=== PATIENT | male | born 1945 | race Caucasian/White ===

== ENCOUNTER 2017-02-09 01:40 | Inpatient (IN) | payer MEDICARE, OTHER ==
[~2017-02-09] VITALS: Ht 190.5 cm; Wt 115.5 kg
[2017-02-09 02:20] VITALS: BP 123/72
[2017-02-09] MEDS ORDERED: ACETAMINOPHEN 325 MG TABLET PO PRN (04:00)
[2017-02-09] MEDS ORDERED: hydrALAzine 20 MG/ML, 1ML IVPush PRN (04:00)
[2017-02-09] MEDS ORDERED: BISACODYL 10 MG SUPP PR PRN (04:00)
[2017-02-09] MEDS ORDERED: NITROGLYCERIN 0.4 MG BOTTLE (25 TABS) SL PRN (04:00)
[2017-02-09] MEDS ORDERED: DOCUSATE 100 MG CAPSULE PO PRN (04:00)
[2017-02-09] MEDS ORDERED: POLYETHYLENE GLYCOL 17 GM PACKET PO PRN (04:00)
[2017-02-09] MEDS ORDERED: OXYcodone IR 5MG TABLET PO PRN (04:00)
[2017-02-09] MEDS ORDERED: morphine SULFATE 10 MG/ML, 1ML IVPush PRN (04:00)
[2017-02-09] MEDS ORDERED: ASPIRIN 325 MG TABLET EC PO ONE (04:00)
[2017-02-09] MEDS ORDERED: ONDANSETRON 2MG/ML, 2ML IVPush PRN (04:00)
[2017-02-09] MEDS ORDERED: PROMETHAZINE 25 MG/ML, 1ML IM PRN (04:00)
[2017-02-09] MEDS ORDERED: ZOLPIDEM 5MG TABLET PO PRN (04:00)
[2017-02-09] MEDS ORDERED: PLEASE ENTER HEIGHT AND WEIGHT MC SCH (04:30)
[2017-02-09] MEDS: SODIUM CHLORIDE 0.9% 1,000 ML IV SCH ×2 (05:36→21:05)
[2017-02-09] MEDS ORDERED: METO25TA35 PO (05:53)
[2017-02-09] MEDS ORDERED: LOVA20TA2 PO (05:53)
[2017-02-09] MEDS ORDERED: ASPI325T80 PO (05:53)
[2017-02-09 06:03] LABS: HEMATOCRIT 45.7 % (39.2-51.8); HEMOGLOBIN 15.4 g/dL (13.7-18.0); WHITE BLOOD COUNT 8.7 x10^3/uL (3.4-10)
[2017-02-09 06:16] LABS: BLOOD UREA NITROGEN 23 mg/dL (7-18)
[2017-02-09 06:24] LABS: IS PT STATUS REG ER OR PRE ER? NO
[2017-02-09] MEDS: METOPROLOL TARTRATE 25 MG TABLET PO SCH ×2 (06:40→17:56)
[2017-02-09 08:10] VITALS: BP 120/72
[2017-02-09] MEDS ORDERED: MIDAZOLAM 1 MG/ML, 5ML ONE (11:43)
[2017-02-09] MEDS ORDERED: FENTANYL PF 100 MCG/2ML ONE (11:43)
[2017-02-09] MEDS ORDERED: VERAPAMIL 2.5 MG/ML, 2ML ONE (11:44)
[2017-02-09] MEDS ORDERED: LIDOCAINE 2%, 20ML ONE (11:44)
[2017-02-09] MEDS ORDERED: HEPARIN 1,000 UNITS/ML, 10ML ONE (11:44)
[2017-02-09] MEDS ORDERED: ENOXAPARIN 100 MG/ML SQ SCH (13:00)
[2017-02-09 14:43] VITALS: BP 138/64
[2017-02-09 19:30] VITALS: BP 144/80
[2017-02-09] MEDS: LOVASTATIN 40 MG TABLET PO SCH (21:05)
[2017-02-10 03:05] VITALS: BP 177/75
[2017-02-10 03:30] VITALS: BP 157/87
[2017-02-10 05:45] LABS: BLOOD UREA NITROGEN 18 mg/dL (7-18)
[2017-02-10] MEDS: METOPROLOL TARTRATE 25 MG TABLET PO SCH ×2 (06:12→17:24)
[2017-02-10 08:31] VITALS: BP 155/79
[2017-02-10] MEDS: LISINOPRIL 5 MG TABLET PO SCH (11:02)
[2017-02-10] MEDS: ASPIRIN 81 MG TABLET EC PO SCH (11:02)
[2017-02-10 13:42] VITALS: BP 133/79
[2017-02-10 20:18] VITALS: BP 122/61
[2017-02-10] MEDS: LOVASTATIN 40 MG TABLET PO SCH (20:25)
[2017-02-11 03:14] VITALS: BP 126/71
[2017-02-11] MEDS: METOPROLOL TARTRATE 25 MG TABLET PO SCH ×2 (06:00→17:20)
[2017-02-11 06:58] VITALS: BP 117/64
[2017-02-11] MEDS ORDERED: HEPARIN 5,000 UNITS/ML, 1ML SQ ONE (07:30)
[2017-02-11] MEDS: ASPIRIN 81 MG TABLET EC PO SCH (08:35)
[2017-02-11] MEDS: LISINOPRIL 5 MG TABLET PO SCH (08:35)
[2017-02-11] MEDS ORDERED: INSULIN ASPART 100 UNITS/ML, PEN SQ-INSULIN SCH (09:00)
[2017-02-11] MEDS ORDERED: CHLORHEXIDINE MOUTHWASH 15 ML UDC MM PRN (09:00)
[2017-02-11] MEDS ORDERED: OMNIPAQUE 350 MG/ML, 100ML BOTTLE ONE (10:29)
[2017-02-11 10:33] LABS: HEMATOCRIT 42.4 % (39.2-51.8); HEMOGLOBIN 14.3 g/dL (13.7-18.0); WHITE BLOOD COUNT 7.6 x10^3/uL (3.4-10)
[2017-02-11] MEDS: MUPIROCIN OINT 2%, 22GM TP SCH ×2 (10:38→23:34)
[2017-02-11] MEDS: SODIUM CHLORIDE FLUSH 10ML SYR IVF SCH ×2 (10:38→23:34)
[2017-02-11 10:49] LABS: BLOOD UREA NITROGEN 17 mg/dL (7-18)
[2017-02-11 10:53] LABS: ASPARTATE AMINO TRANSFERASE 18 U/L (15-37)
[2017-02-11 13:25] VITALS: BP 136/78
[2017-02-11 17:19] VITALS: BP 128/70
[2017-02-11 22:53] VITALS: BP 120/57
[2017-02-11] MEDS: LOVASTATIN 40 MG TABLET PO SCH (22:54)
[2017-02-12] MEDS ORDERED: ALBUMIN HUMAN 5% 500 ML IV ONE (04:00)
[2017-02-12 05:26] VITALS: BP_SYST 113; BP_SYST 118; BP_DIAS 72
[2017-02-12] MEDS: MUPIROCIN OINT 2%, 22GM TP SCH (05:34)
[2017-02-12] MEDS ORDERED: HEPARIN 1,000 UNITS/ML, 10ML ONE (06:52)
[2017-02-12] MEDS ORDERED: MIDAZOLAM 10MG/2 ML ONE (06:52)
[2017-02-12] MEDS ORDERED: PAPAVERINE 30 MG/ML, 2ML ONE (06:52)
[2017-02-12] MEDS ORDERED: FENTANYL PF 1000 MCG/20ML ONE (06:52)
[2017-02-12] MEDS ORDERED: REGULAR INSULIN 62.5 UNITS in SODIUM CHLORIDE 0.9% 249.375 ML IV PRN ×2 (07:30→10:57)
[2017-02-12] MEDS ORDERED: DEXMEDETOMIDINE 200 MCG in SODIUM CHLORIDE 0.9% 48 ML IV SCH (07:30)
[2017-02-12] MEDS ORDERED: PHENYLEPHRINE 10 MG in SODIUM CHLORIDE 0.9% 249 ML IV PRN ×2 (07:30→10:57)
[2017-02-12] MEDS ORDERED: MANNITOL PMX 20% 500 ML IVPB PRN (07:30)
[2017-02-12] MEDS ORDERED: CEFUROXIME 1.5 GM in SODIUM CHLORIDE 0.9% 50 ML IVPB PRN (07:30)
[2017-02-12] MEDS ORDERED: VANCOMYCIN 1,600 MG in SODIUM CHLORIDE 0.9% 250 ML IVPB PRN (07:30)
[2017-02-12] MEDS ORDERED: EPINEPHRINE 2 MG in SODIUM CHLORIDE 0.9% 248 ML IV SCH (07:30)
[2017-02-12] MEDS ORDERED: POTASSIUM CHLORIDE 80 MEQ, SODIUM BICARBONATE 8.4% 10 MEQ, MAGNESIUM SULFATE 0.5 GM, LI... IV PRN (07:30)
[2017-02-12] MEDS ORDERED: ROCURONIUM 10 MG/ML ONE (08:51)
[2017-02-12] MEDS ORDERED: PROPOFOL 10 MG/ML, 20ML ONE (08:51)
[2017-02-12] MEDS: LISINOPRIL 5 MG TABLET PO SCH (09:00)
[2017-02-12] MEDS ORDERED: DEXMEDETOMIDINE 200 MCG in SODIUM CHLORIDE 0.9% 48 ML IV PRN (10:57)
[2017-02-12] MEDS ORDERED: DOBUTAMINE 250 MG in SODIUM CHLORIDE 0.9% 230 ML IV PRN (10:57)
[2017-02-12] MEDS ORDERED: SODIUM CHLORIDE 0.9% 1,000 ML IV PRN (10:57)
[2017-02-12] MEDS ORDERED: NITROGLYCERIN/D5W PMX 250 ML IV PRN (10:57)
[2017-02-12] MEDS ORDERED: PROCHLORPERAZINE 5 MG/ML, 2ML IVPush PRN (11:00)
[2017-02-12] MEDS ORDERED: GLUCAGON 1 MG IM PRN (11:00)
[2017-02-12] MEDS ORDERED: ACETAMINOPHEN 650 MG SUPP PR PRN (11:00)
[2017-02-12] MEDS ORDERED: EPINEPHRINE 2 MG in SODIUM CHLORIDE 0.9% 248 ML IV PRN (11:00)
[2017-02-12] MEDS ORDERED: MEPERIDINE/PF 25MG/0.5ML IVPush PRN (11:00)
[2017-02-12] MEDS ORDERED: MIDAZOLAM 1 MG/ML, 5ML IVPush PRN (11:00)
[2017-02-12] MEDS ORDERED: morphine SULFATE 10 MG/ML, 1ML IVPush PRN (11:00)
[2017-02-12] MEDS ORDERED: BISACODYL 5 MG EC TABLET PO PRN (11:00)
[2017-02-12] MEDS ORDERED: DEXTROSE 50%, 50ML SYRINGE IVPush PRN (11:00)
[2017-02-12] MEDS ORDERED: BISACODYL 10 MG SUPP PR PRN (11:00)
[2017-02-12] MEDS ORDERED: DEXTROSE 4 GM TAB.CHEW PO PRN (11:00)
[2017-02-12] MEDS ORDERED: ONDANSETRON 2MG/ML, 2ML IVPush PRN (11:00)
[2017-02-12] MEDS ORDERED: AMINOCAPROIC ACID 250 MG/ML, 20ML ONE ×2 (11:12→13:49)
[2017-02-12] MEDS ORDERED: PROTAMINE SULFATE 10 MG/ML, 25ML ONE (11:12)
[2017-02-12] MEDS ORDERED: CALCIUM CHLORIDE 10%, 10ML SYR ONE (11:59)
[2017-02-12] MEDS: KSCALE TO 4.5 IV SCH ×2 (12:00→22:25)
[2017-02-12] MEDS ORDERED: FUROSEMIDE 20 MG/2 ML ONE (15:39)
[2017-02-12] MEDS ORDERED: HEPARIN 1,000 UNITS/ML, 30ML ONE ×2 (16:13→16:14)
[2017-02-12] MEDS ORDERED: methylPREDNISolone SOD SUCC 125 MG/2 ML ONE (16:14)
[2017-02-12] MEDS ORDERED: SODIUM BICARB 8.4%, 50ML SYRINGE ONE ×2 (16:15→16:17)
[2017-02-12] MEDS ORDERED: LIDOCAINE 2% 100MG/5ML SYRINGE ONE (16:15)
[2017-02-12] MEDS ORDERED: ALBUMIN HUMAN 25% 50 ML ONE (16:16)
[2017-02-12 16:20] LABS: HEMATOCRIT 33.8 % (39.2-51.8); HEMOGLOBIN 11.4 g/dL (13.7-18.0)
[2017-02-12 16:24] LABS: ABG COLLECTION SITE ARTERIAL LINE
[2017-02-12] MEDS: DEXMEDETOMIDINE 200 MCG in SODIUM CHLORIDE 0.9% 48 ML IV PRN ×3 (16:24→22:54)
[2017-02-12] MEDS ORDERED: VASOPRESSIN 100 UNIT in SODIUM CHLORIDE 0.9% 495 ML IV PRN (16:30)
[2017-02-12] MEDS: EPINEPHRINE 2 MG in SODIUM CHLORIDE 0.9% 248 ML IV PRN (16:39)
[2017-02-12] MEDS: SODIUM BICARB 8.4%, 50ML SYRINGE IV PRN ×3 (16:41→22:08)
[2017-02-12] MEDS ORDERED: POTASSIUM CHLORIDE 30 MEQ in SODIUM CHLORIDE 0.9% 100 ML IV ONE (17:30)
[2017-02-12] MEDS ORDERED: NOVOSEVEN RT (FACTOR VIIA) RECOMB 1,000 MCG IVPush ONE (18:00)
[2017-02-12] MEDS ORDERED: CALCIUM CHLORIDE 13.6 MEQ in SODIUM CHLORIDE 0.9% 100 ML IV ONE (18:00)
[2017-02-12 18:38] VITALS: BP 122/63
[2017-02-12 18:53] VITALS: BP 112/61
[2017-02-12 19:07] VITALS: BP 109/61
[2017-02-12 19:19] VITALS: BP 115/62
[2017-02-12] MEDS: MAGNESIUM SULFATE 1 GM in SODIUM CHLORIDE 0.9% 50 ML IVPB SCH (19:20)
[2017-02-12 19:34] VITALS: BP 113/60
[2017-02-12] MEDS: CEFUROXIME 1.5 GM in SODIUM CHLORIDE 0.9% 50 ML IVPB SCH (19:43)
[2017-02-12] MEDS: VANCOMYCIN 1,600 MG in SODIUM CHLORIDE 0.9% 250 ML IVPB SCH (19:43)
[2017-02-12] MEDS: SODIUM CHLORIDE FLUSH 10ML SYR IVF SCH (20:30)
[2017-02-12] MEDS: LACTATED RINGERS 500 ML IVBOLUS PRN ×2 (22:07→23:23)
[2017-02-12 22:15] LABS: HEMATOCRIT 28.8 % (39.2-51.8); HEMOGLOBIN 9.8 g/dL (13.7-18.0)
[2017-02-13] MEDS: LACTATED RINGERS 500 ML IVBOLUS PRN (01:09)
[2017-02-13] MEDS: DEXMEDETOMIDINE 200 MCG in SODIUM CHLORIDE 0.9% 48 ML IV PRN ×2 (01:10→05:03)
[2017-02-13] MEDS: ACETAMINOPHEN 325 MG TABLET PO PRN ×2 (04:16→16:10)
[2017-02-13 04:19] LABS: ABG COLLECTION SITE ARTERIAL LINE
[2017-02-13 04:24] LABS: HEMATOCRIT 26.9 % (39.2-51.8); HEMOGLOBIN 9.1 g/dL (13.7-18.0); WHITE BLOOD COUNT 17.1 x10^3/uL (3.4-10)
[2017-02-13 04:30] LABS: BLOOD UREA NITROGEN 18 mg/dL (7-18)
[2017-02-13] MEDS: KSCALE TO 4.5 IV SCH ×3 (04:30→16:30)
[2017-02-13 04:38] LABS: DIFF TOTAL CELLS COUNTED 100 CELL DIFF
[2017-02-13 04:41] LABS: VERIFY COUNTS? YES
[2017-02-13 04:55] VITALS: BP 114/49
[2017-02-13] MEDS: CEFUROXIME 1.5 GM in SODIUM CHLORIDE 0.9% 50 ML IVPB SCH (06:15)
[2017-02-13] MEDS: EPINEPHRINE 2 MG in SODIUM CHLORIDE 0.9% 248 ML IV PRN (07:48)
[2017-02-13] MEDS: VANCOMYCIN 1,600 MG in SODIUM CHLORIDE 0.9% 250 ML IVPB SCH (07:55)
[2017-02-13] MEDS: LISINOPRIL 5 MG TABLET PO SCH (09:00)
[2017-02-13] MEDS: DOCUSATE 100 MG CAPSULE PO SCH ×2 (09:11→19:51)
[2017-02-13] MEDS: MUPIROCIN OINT 2%, 22GM NAS SCH ×2 (09:11→19:52)
[2017-02-13] MEDS: PANTOPRAZOLE 40 MG IV IVPush SCH (09:11)
[2017-02-13] MEDS: ASPIRIN 81 MG TABLET EC PO SCH (09:11)
[2017-02-13] MEDS: SODIUM CHLORIDE FLUSH 10ML SYR IVF SCH ×2 (09:11→19:52)
[2017-02-13 10:57] LABS: HEMATOCRIT 24.5 % (39.2-51.8); HEMOGLOBIN 8.3 g/dL (13.7-18.0)
[2017-02-13] MEDS ORDERED: CALCIUM CHLORIDE 13.6 MEQ in SODIUM CHLORIDE 0.9% 100 ML IV ONE (11:30)
[2017-02-13] MEDS: CHLORHEXIDINE MOUTHWASH 15 ML UDC MM SCH ×2 (11:45→23:57)
[2017-02-13] MEDS: OXYcodone IR 5MG TABLET PO PRN ×2 (11:45→16:10)
[2017-02-13] MEDS: MAGNESIUM SULFATE 1 GM in SODIUM CHLORIDE 0.9% 50 ML IVPB SCH (11:46)
[2017-02-13 17:40] LABS: HEMATOCRIT 24.1 % (39.2-51.8); HEMOGLOBIN 8.1 g/dL (13.7-18.0)
[2017-02-13] MEDS ORDERED: WARFARIN 5 MG TABLET PO-COUM ONE (18:00)
[2017-02-13] MEDS: METOPROLOL TARTRATE 25 MG TABLET PO/NG SCH (19:37)
[2017-02-13] MEDS: INSULIN ASPART 100 UNITS/ML, PEN SQ-INSULIN PRN ×4 (21:04→23:57)
[2017-02-14] MEDS: OXYcodone IR 5MG TABLET PO PRN ×2 (00:38→05:25)
[2017-02-14 04:36] LABS: HEMOGLOBIN 7.7 g/dL (13.7-18.0)
[2017-02-14 04:46] LABS: BLOOD UREA NITROGEN 21 mg/dL (7-18)
[2017-02-14] MEDS: INSULIN ASPART 100 UNITS/ML, PEN SQ-INSULIN PRN ×4 (05:21→21:01)
[2017-02-14 05:22] VITALS: BP 108/50
[2017-02-14 09:06] LABS: HIT LOT CART23835/KIT23844
[2017-02-14] MEDS: PANTOPRAZOLE 40 MG IV IVPush SCH (09:41)
[2017-02-14] MEDS: SODIUM CHLORIDE FLUSH 10ML SYR IVF SCH ×2 (09:41→20:17)
[2017-02-14] MEDS: MUPIROCIN OINT 2%, 22GM NAS SCH ×2 (09:41→20:17)
[2017-02-14] MEDS: DOCUSATE 100 MG CAPSULE PO SCH ×2 (09:41→20:17)
[2017-02-14] MEDS: FUROSEMIDE 20 MG/2 ML IV SCH (09:41)
[2017-02-14] MEDS: METOPROLOL TARTRATE 25 MG TABLET PO/NG SCH ×2 (09:42→21:00)
[2017-02-14] MEDS: POTASSIUM CHLORIDE 10 MEQ TABLET.ER PO SCH (09:42)
[2017-02-14] MEDS: LISINOPRIL 5 MG TABLET PO SCH (09:42)
[2017-02-14] MEDS: ASPIRIN 81 MG TABLET EC PO SCH (09:42)
[2017-02-14] MEDS: ENOXAPARIN 40 MG/0.4 ML SQ SCH (09:43)
[2017-02-14] MEDS: CHLORHEXIDINE MOUTHWASH 15 ML UDC MM SCH ×2 (09:59→23:46)
[2017-02-14] MEDS: HYDROcodone/APAP 10/325 MG TABLET PO PRN ×4 (11:01→23:46)
[2017-02-14 11:21] LABS: HIT RESULT NEGATIVE (NEGATIVE)
[2017-02-14 11:22] LABS: HIT OBC PASS
[2017-02-14] MEDS: MAGNESIUM SULFATE 1 GM in SODIUM CHLORIDE 0.9% 50 ML IVPB SCH (11:32)
[2017-02-14 15:45] VITALS: BP 136/72
[2017-02-14 16:05] VITALS: BP 113/62
[2017-02-14] MEDS ORDERED: WARFARIN 5 MG TABLET PO-COUM ONE (18:00)
[2017-02-14] MEDS ORDERED: FUROSEMIDE 20 MG/2 ML IV ONE (18:00)
[2017-02-14 18:20] VITALS: BP 124/66
[2017-02-15] MEDS: HYDROcodone/APAP 10/325 MG TABLET PO PRN ×2 (03:45→09:10)
[2017-02-15 04:31] LABS: HEMATOCRIT 23.8 % (39.2-51.8); HEMOGLOBIN 8.2 g/dL (13.7-18.0)
[2017-02-15 04:40] LABS: BLOOD UREA NITROGEN 30 mg/dL (7-18)
[2017-02-15 05:03] VITALS: BP 122/55
[2017-02-15] MEDS: ENOXAPARIN 40 MG/0.4 ML SQ SCH ×3 (08:24→20:21)
[2017-02-15] MEDS: METOPROLOL TARTRATE 25 MG TABLET PO/NG SCH ×2 (08:24→20:13)
[2017-02-15] MEDS: POTASSIUM CHLORIDE 10 MEQ TABLET.ER PO SCH (08:25)
[2017-02-15] MEDS: PANTOPRAZOLE 40 MG IV IVPush SCH (08:25)
[2017-02-15] MEDS: ASPIRIN 81 MG TABLET EC PO SCH (08:25)
[2017-02-15] MEDS: DOCUSATE 100 MG CAPSULE PO SCH ×2 (08:25→20:13)
[2017-02-15] MEDS: LISINOPRIL 5 MG TABLET PO SCH (08:25)
[2017-02-15] MEDS: MUPIROCIN OINT 2%, 22GM NAS SCH ×2 (08:25→20:13)
[2017-02-15] MEDS: FUROSEMIDE 20 MG/2 ML IV SCH (08:25)
[2017-02-15] MEDS: SODIUM CHLORIDE FLUSH 10ML SYR IVF SCH ×2 (08:26→20:17)
[2017-02-15] MEDS: INSULIN ASPART 100 UNITS/ML, PEN SQ-INSULIN PRN (08:26)
[2017-02-15 11:36] VITALS: BP 102/57
[2017-02-15 11:45] VITALS: BP 109/58
[2017-02-15 11:59] VITALS: BP 114/57
[2017-02-15 12:16] VITALS: BP 112/57
[2017-02-15 14:28] VITALS: BP 135/68
[2017-02-15] MEDS ORDERED: WARFARIN 5 MG TABLET PO-COUM SCH (18:00)
[2017-02-15] MEDS ORDERED: BISACODYL 5 MG EC TABLET PO PRN (19:30)
[2017-02-15] MEDS ORDERED: LACTATED RINGERS 500 ML IVBOLUS PRN (19:30)
[2017-02-15] MEDS ORDERED: hydrALAzine 20 MG/ML, 1ML IVPush PRN (19:30)
[2017-02-15] MEDS ORDERED: GLUCAGON 1 MG IM PRN (19:30)
[2017-02-15] MEDS ORDERED: DEXTROSE 4 GM TAB.CHEW PO PRN (19:30)
[2017-02-15] MEDS ORDERED: PROCHLORPERAZINE 5 MG/ML, 2ML IVPush PRN (19:30)
[2017-02-15] MEDS ORDERED: ACETAMINOPHEN 650 MG SUPP PR PRN (19:30)
[2017-02-15] MEDS ORDERED: INSULIN ASPART 100 UNITS/ML, PEN SQ-INSULIN PRN (19:30)
[2017-02-15] MEDS ORDERED: ONDANSETRON 2MG/ML, 2ML IVPush PRN (19:30)
[2017-02-15] MEDS ORDERED: BISACODYL 10 MG SUPP PR PRN (19:30)
[2017-02-15] MEDS ORDERED: ZOLPIDEM 5MG TABLET PO PRN (19:30)
[2017-02-15] MEDS ORDERED: DEXTROSE 50%, 50ML SYRINGE IVPush PRN (19:30)
[2017-02-16 03:31] VITALS: BP 107/67
[2017-02-16 07:05] LABS: BLOOD UREA NITROGEN 24 mg/dL (7-18)
[2017-02-16] MEDS: PANTOPRAZOLE 40 MG IV IVPush SCH (07:49)
[2017-02-16] MEDS ORDERED: FUROSEMIDE 20 MG/2 ML ONE (07:57)
[2017-02-16 08:02] VITALS: BP 104/69
[2017-02-16] MEDS: SODIUM CHLORIDE FLUSH 10ML SYR IVF SCH ×2 (08:05→23:47)
[2017-02-16] MEDS: LISINOPRIL 5 MG TABLET PO SCH (08:06)
[2017-02-16] MEDS: MUPIROCIN OINT 2%, 22GM NAS SCH ×2 (08:06→23:47)
[2017-02-16] MEDS: METOPROLOL TARTRATE 25 MG TABLET PO/NG SCH ×2 (08:06→23:47)
[2017-02-16] MEDS: TAMSULOSIN 0.4 MG CAP.ER.24H PO SCH (08:07)
[2017-02-16] MEDS: DOCUSATE 100 MG CAPSULE PO SCH ×2 (08:07→23:47)
[2017-02-16] MEDS: ASPIRIN 81 MG TABLET EC PO SCH (08:07)
[2017-02-16] MEDS: POTASSIUM CHLORIDE 10 MEQ TABLET.ER PO SCH (08:07)
[2017-02-16] MEDS ORDERED: ENOXAPARIN 40 MG/0.4 ML SQ SCH (09:00)
[2017-02-16] MEDS ORDERED: FUROSEMIDE 20 MG/2 ML IV SCH ×2 (09:00)
[2017-02-16] MEDS ORDERED: TAMSULOSIN 0.4 MG CAP.ER.24H PO SCH (09:00)
[2017-02-16] MEDS: POTASSIUM CHLORIDE 20 MEQ TAB.ER.PRT PO SCH (17:33)
[2017-02-16] MEDS ORDERED: WARFARIN 10 MG TABLET PO-COUM SCH (18:00)
[2017-02-16 19:18] VITALS: BP 107/71
[2017-02-16 23:30] VITALS: BP 104/70
[2017-02-16] MEDS: FUROSEMIDE 20 MG/2 ML IV SCH (23:46)
[2017-02-16] MEDS: ENOXAPARIN 40 MG/0.4 ML SQ SCH (23:53)
[2017-02-17 01:51] VITALS: BP 98/61
[2017-02-17 06:28] LABS: BLOOD UREA NITROGEN 21 mg/dL (7-18)
[2017-02-17 08:22] VITALS: BP 117/72
[2017-02-17] MEDS: PANTOPRAZOLE 40 MG IV IVPush SCH (08:49)
[2017-02-17] MEDS: MUPIROCIN OINT 2%, 22GM NAS SCH ×2 (08:57→20:33)
[2017-02-17] MEDS: FUROSEMIDE 20 MG/2 ML IV SCH (08:57)
[2017-02-17] MEDS: POTASSIUM CHLORIDE 10 MEQ TABLET.ER PO SCH (08:58)
[2017-02-17] MEDS: ASPIRIN 81 MG TABLET EC PO SCH (08:58)
[2017-02-17] MEDS: LISINOPRIL 5 MG TABLET PO SCH (08:58)
[2017-02-17] MEDS: PANTOPROZOLE 40MG TABLET PO SCH (08:58)
[2017-02-17] MEDS: TAMSULOSIN 0.4 MG CAP.ER.24H PO SCH (08:58)
[2017-02-17] MEDS: METOPROLOL TARTRATE 25 MG TABLET PO/NG SCH ×2 (08:58→20:32)
[2017-02-17] MEDS: DOCUSATE 100 MG CAPSULE PO SCH ×2 (09:02→20:32)
[2017-02-17] MEDS: POTASSIUM CHLORIDE 20 MEQ TAB.ER.PRT PO SCH ×3 (09:02→20:31)
[2017-02-17] MEDS: ACETAMINOPHEN 325 MG TABLET PO PRN (09:02)
[2017-02-17] MEDS: SODIUM CHLORIDE FLUSH 10ML SYR IVF SCH ×2 (09:04→20:31)
[2017-02-17 12:56] VITALS: BP 106/69
[2017-02-17] MEDS ORDERED: WARFARIN 5 MG TABLET PO-COUM ONE (18:00)
[2017-02-17] MEDS ORDERED: ENOXAPARIN 40 MG/0.4 ML SQ SCH (19:30)
[2017-02-17 19:40] VITALS: BP 111/62
[2017-02-17] MEDS: FUROSEMIDE 40 MG/4 ML IV SCH (20:31)
[2017-02-18 02:50] VITALS: BP 108/66
[2017-02-18 06:00] LABS: BLOOD UREA NITROGEN 17 mg/dL (7-18)
[2017-02-18 06:01] LABS: HEMATOCRIT 26.3 % (39.2-51.8); HEMOGLOBIN 8.9 g/dL (13.7-18.0); WHITE BLOOD COUNT 8.6 x10^3/uL (3.4-10)
[2017-02-18 07:19] VITALS: BP 112/65
[2017-02-18] MEDS: PANTOPROZOLE 40MG TABLET PO SCH ×2 (07:30→08:20)
[2017-02-18] MEDS: PANTOPRAZOLE 40 MG IV IVPush SCH (08:14)
[2017-02-18] MEDS: DOCUSATE 100 MG CAPSULE PO SCH ×2 (08:19→19:46)
[2017-02-18] MEDS: LISINOPRIL 5 MG TABLET PO SCH (08:20)
[2017-02-18] MEDS: METOPROLOL TARTRATE 25 MG TABLET PO/NG SCH ×2 (08:20→19:42)
[2017-02-18] MEDS: POTASSIUM CHLORIDE 20 MEQ TAB.ER.PRT PO SCH ×2 (08:20→17:28)
[2017-02-18] MEDS: ASPIRIN 81 MG TABLET EC PO SCH (08:21)
[2017-02-18] MEDS: MUPIROCIN OINT 2%, 22GM NAS SCH ×2 (08:21→19:42)
[2017-02-18] MEDS: SODIUM CHLORIDE FLUSH 10ML SYR IVF SCH ×2 (08:21→19:41)
[2017-02-18] MEDS: TAMSULOSIN 0.4 MG CAP.ER.24H PO SCH (08:21)
[2017-02-18] MEDS: FUROSEMIDE 40 MG/4 ML IV SCH ×2 (08:21→19:47)
[2017-02-18] MEDS ORDERED: LIDOCAINE 1%, 20ML ONE (08:57)
[2017-02-18] MEDS: HYDROcodone/APAP 10/325 MG TABLET PO PRN ×2 (11:08→23:02)
[2017-02-18] MEDS ORDERED: KETOROLAC 30 MG/1 ML IM PRN ×2 (12:30)
[2017-02-18] MEDS ORDERED: KETOROLAC 30 MG/1 ML IVPush SCH ×2 (12:30→18:30)
[2017-02-18 12:53] VITALS: BP 100/63
[2017-02-18] MEDS ORDERED: KETOROLAC 30 MG/1 ML IVPush PRN ×2 (13:00→18:30)
[2017-02-18] MEDS ORDERED: WARFARIN 2.5 MG TABLET PO-COUM SCH (18:00)
[2017-02-18 20:01] VITALS: BP 98/61
[2017-02-19 00:36] VITALS: BP 99/58
[2017-02-19 05:35] LABS: HEMATOCRIT 26.2 % (39.2-51.8); HEMOGLOBIN 8.8 g/dL (13.7-18.0); WHITE BLOOD COUNT 8.9 x10^3/uL (3.4-10)
[2017-02-19 05:38] LABS: BLOOD UREA NITROGEN 21 mg/dL (7-18)
[2017-02-19 07:42] VITALS: BP 102/58
[2017-02-19] MEDS: FUROSEMIDE 40 MG/4 ML IV SCH (08:05)
[2017-02-19] MEDS: METOPROLOL TARTRATE 25 MG TABLET PO/NG SCH (08:05)
[2017-02-19] MEDS: TAMSULOSIN 0.4 MG CAP.ER.24H PO SCH (08:05)
[2017-02-19] MEDS: LISINOPRIL 5 MG TABLET PO SCH (08:05)
[2017-02-19] MEDS: PANTOPROZOLE 40MG TABLET PO SCH (08:06)
[2017-02-19] MEDS: SODIUM CHLORIDE FLUSH 10ML SYR IVF SCH (08:06)
[2017-02-19] MEDS: POTASSIUM CHLORIDE 20 MEQ TAB.ER.PRT PO SCH ×2 (08:06→17:06)
[2017-02-19] MEDS: ASPIRIN 81 MG TABLET EC PO SCH (08:06)
[2017-02-19] MEDS: DOCUSATE 100 MG CAPSULE PO SCH (08:06)
[2017-02-19] MEDS ORDERED: ASPI-621 PO (16:38)
[2017-02-19] MEDS ORDERED: FURO40TA6 PO (16:39)
[2017-02-19] MEDS ORDERED: POTA20TA89 PO (16:40)
[2017-02-19] MEDS ORDERED: LISI5TAB7 PO (16:41)
[2017-02-19] MEDS ORDERED: METO25TA35 PO (16:41)
[2017-02-19] MEDS ORDERED: TAMS-11 PO (16:42)
[2017-02-19] MEDS ORDERED: PANT40TA3 PO (16:42)
[2017-02-19] MEDS ORDERED: WARF2TAB PO (16:44)
[2017-02-19] MEDS ORDERED: HYDR-3307 PO (16:46)
[2017-02-19] MEDS ORDERED: WARFARIN 2 MG TABLET PO-COUM SCH (18:00)
[2017-02-19 20:00] VITALS: BP 106/64
== END 2017-02-20 00:51 | disposition home health service (06) | DRG 216 ==
LOC: 5SO 02:12 → CCU 02-12 07:32 → 5SO 02-15 17:55
PROC: 4A023N7 Measurement of Cardiac Sampling and Pressure, Left Heart, Percutaneous Approach (ICD-10-PCS; principal; 2017-02-09)
PROC: B2111ZZ Fluoroscopy of Multiple Coronary Arteries using Low Osmolar Contrast (ICD-10-PCS; 2017-02-09)
PROC: B2151ZZ Fluoroscopy of Left Heart using Low Osmolar Contrast (ICD-10-PCS; 2017-02-09)
PROC: 06BQ3ZZ Excision of Left Saphenous Vein, Percutaneous Approach (ICD-10-PCS; 2017-02-12)
PROC: 30233L1 Transfusion of Nonautologous Fresh Plasma into Peripheral Vein, Percutaneous Approach (ICD-10-PCS; 2017-02-12)
PROC: 021009W Bypass Coronary Artery, One Artery from Aorta with Autologous Venous Tissue, Open Approach (ICD-10-PCS; 2017-02-12)
PROC: 02100Z9 Bypass Coronary Artery, One Artery from Left Internal Mammary, Open Approach (ICD-10-PCS; 2017-02-12)
PROC: 02RF0JZ Replacement of Aortic Valve with Synthetic Substitute, Open Approach (ICD-10-PCS; 2017-02-12)
PROC: 30233R1 Transfusion of Nonautologous Platelets into Peripheral Vein, Percutaneous Approach (ICD-10-PCS; 2017-02-12)
PROC: 30233K1 Transfusion of Nonautologous Frozen Plasma into Peripheral Vein, Percutaneous Approach (ICD-10-PCS; 2017-02-12)
PROC: 5A09357 Assistance with Respiratory Ventilation, Less than 24 Consecutive Hours, Continuous Positive Airway Pressure (ICD-10-PCS; 2017-02-13)
PROC: 30233N1 Transfusion of Nonautologous Red Blood Cells into Peripheral Vein, Percutaneous Approach (ICD-10-PCS; 2017-02-14)
PROC: 0W9B3ZZ Drainage of Left Pleural Cavity, Percutaneous Approach (ICD-10-PCS; 2017-02-18)
DX: T82.857A Stenosis of other cardiac prosthetic devices, implants and grafts, initial encounter (principal); I21.4 Non-ST elevation (NSTEMI) myocardial infarction; J96.90 Respiratory failure, unspecified, unspecified whether with hypoxia or hypercapnia; I11.9 Hypertensive heart disease without heart failure; E78.5 Hyperlipidemia, unspecified; I08.0 Rheumatic disorders of both mitral and aortic valves; I95.9 Hypotension, unspecified; Y83.1 Surgical operation with implant of artificial internal device as the cause of abnormal reaction of the patient, or of later complication, without mention of misadventure at the time of the procedure; I25.10 Atherosclerotic heart disease of native coronary artery without angina pectoris; I25.2 Old myocardial infarction; Z87.891 Personal history of nicotine dependence; Z90.49 Acquired absence of other specified parts of digestive tract; Z90.89 Acquired absence of other organs; Z88.1 Allergy status to other antibiotic agents
CPT/HCPCS: 32555; 36415; 36600; 71010; 71020; 71275; 80048; 80053; 80061; 81003; 82040; 82330; 82800; 82803; 82810; 82947; 82962; 83036; 83735; 84132; 84295; 84484; 85014; 85018; 85025; 85049; 85347; 85610; 85730; 86022; 86850; 86900; 86923; 87081; 88305; 93005; 93312; 93321; 93325; 93458; 93880; 93970; 94002; 94003; 94150; 99156; 99157; C1768; C1769; C1894; J0697; J1644; J1650; J1815; J1885; J1940; J2250; J2704; J2720; J3010; J3370; J3475; J3480; J3490; J7120; J7189; P9045; P9047; Q9967; C1751; C1760; C1762; C9113; J0171; J2370; J2440; J2930; J7030; J7040; J7050; P9012; P9016; P9017; P9035

== ENCOUNTER → 2020-08-06 | Outpatient (CLI) | payer MEDICARE, OTHER ==
[~2020-08-06] MED LIST: ASPI325T80 PO; ASPI81TA45 PO; FURO40TA6 PO; HYDR-3248 PO; LISI5TAB7 PO; LOVA20TA2 PO; METO25TA35 PO; PANT40TA3 PO; POTA20TA89 PO; TAMS-11 PO; WARF2TAB PO
== END | disposition home or self-care (01) ==
LOC: CVU 09:23
PROVIDERS: ATTEND Internal Medicine Cardiovascular Disease
DX: I05.1 Rheumatic mitral insufficiency (principal); I05.8 Other rheumatic mitral valve diseases; I25.2 Old myocardial infarction; I11.9 Hypertensive heart disease without heart failure; E78.5 Hyperlipidemia, unspecified; I25.10 Atherosclerotic heart disease of native coronary artery without angina pectoris; Z95.2 Presence of prosthetic heart valve; Z95.1 Presence of aortocoronary bypass graft
CPT/HCPCS: 93306